=== PATIENT | female | born 1955 | race Caucasian/White ===

== ENCOUNTER 2024-06-25 11:46 | Emergency (ER) | payer MEDICARE, OTHER ==
[~2024-06-25] VITALS: Ht 149.9 cm; Wt 56.8 kg
[2024-06-25 11:50] VITALS: BP 128/68; PULSE 89; O2SAT 97
[2024-06-25 13:11] VITALS: RESP 16
[2024-06-25] MEDS: HYDROcodone/acetaminophen 5mg/325mg tablet PO ONE (13:11)
[2024-06-25] MEDS: ketorolac trometh 15mg/ml vial 15 MG/ML ML IM ONE (13:11)
[2024-06-25 13:23] VITALS: TEMP 98.8
== END 2024-06-25 13:24 | disposition home or self-care (01) ==
LOC: ER 11:47
DX: M25.562 Pain in left knee (principal)
CPT/HCPCS: 73564; 96372; 99284; J1885

== ENCOUNTER → 2024-07-01 | Outpatient (CLI) | payer MEDICARE, OTHER | END | disposition home or self-care (01) | LOC: MRI02 13:19 | PROVIDERS: ATTEND Physician Assistant | DX: S32.10XD Unspecified fracture of sacrum, subsequent encounter for fracture with routine healing (principal); M25.362 Other instability, left knee; M71.22 Synovial cyst of popliteal space [Baker], left knee; M25.462 Effusion, left knee; R20.0 Anesthesia of skin; M51.26 Other intervertebral disc displacement, lumbar region; M48.061 Spinal stenosis, lumbar region without neurogenic claudication; M47.816 Spondylosis without myelopathy or radiculopathy, lumbar region; M43.06 Spondylolysis, lumbar region; M43.8X6 Other specified deforming dorsopathies, lumbar region; X58.XXXD Exposure to other specified factors, subsequent encounter | CPT/HCPCS: 72146; 72148; 73721 ==

== ENCOUNTER 2024-10-06 14:00 | Outpatient (CLI) | payer MEDICARE, OTHER | END 2024-10-06 23:59 | disposition home or self-care (01) | LOC: RAD 14:00 | PROVIDERS: ATTEND Nurse Practitioner Adult Health | DX: M46.1 Sacroiliitis, not elsewhere classified (principal); M54.59 Other low back pain; M47.816 Spondylosis without myelopathy or radiculopathy, lumbar region; M53.3 Sacrococcygeal disorders, not elsewhere classified; Z96.641 Presence of right artificial hip joint | CPT/HCPCS: 72192 ==